=== PATIENT | male | born 1960 | race African-American/Black ===

== ENCOUNTER 2017-01-31 19:03 | Emergency (ER) | payer SELFPAY ==
[~2017-01-31] VITALS: Ht 177.8 cm; Wt 103.0 kg
[2017-01-31 21:51] LABS: CHLORIDE 101 mEq/L (98-107); INDEX HEMOLYSI 1 (1-3); INDEX ICTERIC 1 (1-4); INDEX LIPEMIC 1 (1-3)
[2017-01-31 21:54] LABS: ALBUMIN 3.6 g/dL (3.4-5.0); ANION GAP 12; CALCIUM 8.9 mg/dL (8.5-10.1); CARBON DIOXIDE 29 mEq/L (21-32); UREA NITROGEN BLOOD 12 mg/dL (7-21)
[2017-01-31 21:59] LABS: ALANINE AMINOTRANSFERASE 31 IU/L (13-61); eGFR 53 mL/min (>60)
[2017-01-31 23:17] VITALS: BP 140/86
== END 2017-01-31 23:37 | disposition home or self-care (01) ==
LOC: ER 19:03
DX: I10 Essential (primary) hypertension (principal); Z88.0 Allergy status to penicillin
CPT/HCPCS: 36415; 80053; 99283; Z7610

== ENCOUNTER 2021-06-23 21:50 | Emergency (ER) | payer SELFPAY ==
[~2021-06-23] VITALS: Ht 177.8 cm; Wt 91.0 kg
[2021-06-23 22:20] VITALS: BP 140/84
== END 2021-06-23 23:26 | disposition left against medical advice (07) ==
LOC: EDBD 21:50 → ER 21:50
DX: R10.9 Unspecified abdominal pain (principal); Z53.21 Procedure and treatment not carried out due to patient leaving prior to being seen by health care provider